=== PATIENT | female | born 1975 | race African-American/Black ===

== ENCOUNTER 2021-01-17 15:40 | Emergency (ER) | payer BC ==
[~2021-01-17] VITALS: Ht 162.6 cm; Wt 103.0 kg
[2021-01-17 15:51] VITALS: BP 162/107
[2021-01-17] MEDS ORDERED: BACITRACIN ZINC OINT UDPKT TOP ONE (16:45)
[2021-01-17] MEDS ORDERED: LIDOCAINE HCL/EPINEPHRINE 1%-EPI 1:100,000 20 ML VIAL INFIL ONE (16:45)
[2021-01-17] MEDS ORDERED: ACETAMINOPHEN 325MG TABLET PO ONE (16:45)
== END 2021-01-17 17:57 | disposition home or self-care (01) ==
LOC: ER 15:40
DX: S61.412A Laceration without foreign body of left hand, initial encounter (principal); W26.0XXA Contact with knife, initial encounter; Y93.G3 Activity, cooking and baking; Y92.010 Kitchen of single-family (private) house as the place of occurrence of the external cause
CPT/HCPCS: 12002; 99282; J3490